=== PATIENT | male | born 2005 | race Caucasian/White ===

== ENCOUNTER 2023-03-09 10:38 | Emergency (ER) | payer BC ==
[~2023-03-09] VITALS: Ht 170.2 cm; Wt 73.9 kg
[2023-03-09 10:57] VITALS: BP_SYST 128; PULSE 73; RESP 20; RESP 21; TEMP 97.8; O2SAT 97
[2023-03-09] MEDS ORDERED: NACL 0.9% 1,000 ML IV ONE (11:00)
[2023-03-09] MEDS ORDERED: LORazepam 2 MG/ML VIAL IVP ONE (11:00)
[2023-03-09] MEDS ORDERED: KETOROLAC TROMETHAMINE 30 MG VIAL IVP ONE (11:00)
[2023-03-09] MEDS ORDERED: ONDANSETRON HCL 4 MG/2 ML VIAL IVP ONE (11:00)
[2023-03-09] MEDS ORDERED: DOXY100C5 PO (11:51)
[2023-03-09] MEDS ORDERED: CETI1TAB2 PO (11:51)
[2023-03-09 12:05] VITALS: BP_SYST 121; PULSE 16; RESP 19; TEMP 98.4; O2SAT 100
== END 2023-03-09 12:08 | disposition home or self-care (01) ==
LOC: SED 10:38
DX: S60.561A Insect bite (nonvenomous) of right hand, initial encounter (principal); Z88.2 Allergy status to sulfonamides; Z79.899 Other long term (current) drug therapy; W57.XXXA Bitten or stung by nonvenomous insect and other nonvenomous arthropods, initial encounter; Y93.89 Activity, other specified; Y92.89 Other specified places as the place of occurrence of the external cause; Y99.8 Other external cause status
CPT/HCPCS: 99283